=== PATIENT | male | born 1950 | race Caucasian/White ===

== ENCOUNTER 2019-05-24 09:00 | Outpatient (RCR) | payer BC | END 2019-05-24 09:30 | disposition still patient (30) | LOC: PT 09:00 | DX: M25.511 Pain in right shoulder (principal) ==

== ENCOUNTER 2023-06-02 08:37 | Emergency (ER) | payer MEDICARE, BC ==
[~2023-06-02] VITALS: Ht 180.3 cm; Wt 100.0 kg
[2023-06-02] MEDS ORDERED: LOSARTAN POTAS100 MG PO (08:42)
[2023-06-02] MEDS ORDERED: FLOMAX0.4 MG PO (08:43)
[2023-06-02] MEDS ORDERED: FINASTERIDE5 M1 PO (08:43)
[2023-06-02] MEDS ORDERED: BRINZOLAMIDE15 ML OP (08:43)
[2023-06-02] MEDS ORDERED: HCTZ 25MG25 MG PO (08:43)
[2023-06-02 09:38] LABS: BASO # 0.04 K/mm3 (0.02-0.10); EOS # 0.17 K/mm3 (0.04-0.40); EOS % 3.1 % (0.0-4.0); HEMATOCRIT 47.5 % (42.0-52.0); HEMOGLOBIN 16.8 g/dL (13.5-18.0); LYMPH# 2.18 K/mm3 (1.50-4.00); MEAN CELL VOLUME 89 fl (78-100); MEAN CORPUSCULAR HEMOGLOBIN 32 pg (27-31); MEAN CORPUSCULAR HGB CONC 35 g/dL (33-37); MEAN PLATELET VOLUME 8.8 fl (7.4-10.4); MONO # 0.69 K/mm3 (0.20-0.80); PLATELET COUNT 235 K/mm3 (130-400); RED BLOOD COUNT 5.34 M/mm3 (4.20-5.60); RED CELL DISTRIBUTION WIDTH 12.1 % (11.5-14.5); WHITE BLOOD COUNT 5.5 K/mm3 (4.8-10.8)
[2023-06-02 09:43] LABS: SODIUM 139 mmol/L (136-145)
[2023-06-02 09:44] LABS: CALCIUM 9.3 mg/dL (8.3-10.5)
[2023-06-02 09:45] LABS: GLUCOSE 122 mg/dL (75-110); TOTAL PROTEIN 6.6 g/dL (6.2-8.1)
[2023-06-02 09:46] LABS: CARBON DIOXIDE 26 mmol/L (23-31)
[2023-06-02 09:47] LABS: TOTAL BILIRUBIN 3.4 mg/dL (0.2-1.2)
[2023-06-02 09:51] LABS: AST-SGOT 61 U/L (5-34)
[2023-06-02 09:52] LABS: ALT/SGPT 43 U/L (0-55)
[2023-06-02 09:53] LABS: LIPASE 28 U/L (8-78)
[2023-06-02 10:09] LABS: TROPONIN-I < 0.030 ng/mL (<0.030)
[2023-06-02 13:56] LABS: URINE APPEARANCE CLEAR (CLEAR); URINE BILIRUBIN NEGATIVE (NEGATIVE); URINE COLOR YELLOW (YELLOW); URINE GLUCOSE NEGATIVE (NEGATIVE); URINE KETONE NEGATIVE (NEGATIVE); URINE PROTEIN(semi-quant) NEGATIVE (NEGATIVE)
[2023-06-02 13:57] LABS: URINE BLOOD TRACE-INTACT (NEGATIVE); URINE LEUKOCYTE ESTERASE NEGATIVE (NEGATIVE); URINE NITRATE NEGATIVE (NEGATIVE)
[2023-06-02] MEDS ORDERED: K-TAB20 MEQ PO (14:24)
[2023-06-02] MEDS ORDERED: PEPCID 20MG TAB20 MG PO (14:24)
[2023-06-02] MEDS ORDERED: ZOFRAN ODT4 MG PO (14:24)
[2023-06-02 14:39] VITALS: BP 137/80
== END 2023-06-02 14:25 | disposition home or self-care (01) ==
LOC: ED 08:37
PROVIDERS: Physician Assistant
DX: K76.89 Other specified diseases of liver (principal); R11.2 Nausea with vomiting, unspecified; E87.6 Hypokalemia; I28.0 Arteriovenous fistula of pulmonary vessels; R91.1 Solitary pulmonary nodule
CPT/HCPCS: C9113; J2405; J3480; J7030; Q9967

== ENCOUNTER 2023-07-30 09:54 | Outpatient (RCR) | payer MEDICARE, BC ==
[~2023-07-30 09:54] MED LIST: BRINZOLAMIDE15 ML OP; FINASTERIDE5 M1 PO; FLOMAX0.4 MG PO; HCTZ 25MG25 MG PO; K-TAB20 MEQ PO; LOSARTAN POTAS100 MG PO; PEPCID 20MG TAB20 MG PO; ZOFRAN ODT4 MG PO
== END 2023-08-05 | disposition home or self-care (01) ==
LOC: PT
DX: M25.561 Pain in right knee (principal); Z96.651 Presence of right artificial knee joint

== ENCOUNTER 2024-08-02 09:00 | Outpatient (RCR) | payer MEDICARE, BC | END 2024-08-04 | LOC: PT | DX: M79.606 Pain in leg, unspecified (principal) ==